=== PATIENT | female | born 1960 | race Caucasian/White ===

== ENCOUNTER → 2017-10-16 | Outpatient (CLI) | payer OTHER ==
[2015-12-02 18:27] VITALS: BP 90/50
[~2017-10-16] MED LIST: AMIT50TA PO; CONTRAST GIVEN. MC PRN; CYCL10TA2 PO; DOCU-109 PO; GABA-586 PO; IOHEXOL 180 MG/ML 10 ML VIAL. IT ONE; LIDOCAINE WITH 8.4% SOD BICARB 3 ML DISP.SYRIN. INJ ONE; LIDOCAINE WITH 8.4% SOD BICARB 3 ML DISP.SYRIN. ONE; METH750T2 PO; OXYC-411 PO; PROM25VI5 IJ; TOPI50TA8 PO; TRAZ-85 PO
--- NOTE | 2017-10-16 11:32 | RAD ---
Lumbar myelogram, 10/16/2017: History: Lumbar radiculopathy, leg pain Under local anesthesia, aseptic conditions and fluoroscopic guidance a lumbar puncture was performed at the mid L3 level utilizing a 25-gauge Jeanette spinal needle. Good clear CSF flow was obtained following which 14 cc of Omnipaque 180 was injected into the thecal sac. The spinal needle was then removed and appropriate digital images obtained. 2.3 minutes of fluoroscopy time was utilized. 14 fluoroscopic spot images were recorded. The patient tolerated the procedure well and was sent to CT in good condition. The following findings are delineated on the myelogram: 1. Bilateral pedicle screws are in place at L5 and S1 attached to longitudinally oriented posterior fixation rods. A radiopaque disc pacer is present centered within the right side of the L5-S1 disc space. 2. There is a mild anterior extradural defect at L2-3. 3. There is mild generalized widening of the anterior epidural space at L5-S1. 4. There is poor filling of the S1 nerve root sleeves bilaterally. The other lumbar nerve root sleeves are unremarkable. 5. Upright lateral flexion and extension views show no significant instability. CT of the lumbar spine-post myelogram, 10/16/2017: Multidetector CT imaging was performed with multiplanar reconstructions produced. The following findings are delineated: 1. At L1-2 there is no significant disc bulge or protrusion. The central spinal canal and neural foramina are well maintained. 2. At L2-3 there is a small to moderate size posterior disc protrusion centered just to the right of midline. This is narrowing the thecal sac predominantly on the right. At the midline the thecal sac measures 7-8 mm in AP dimension. This disc protrusion was also evident on an older study from 12/01/2015. There are mild degenerative changes involving the facet joints. The neural foramina are well maintained. 3. At L3-4 there is only mild posterior annular bulging. The central spinal canal and neural foramina are well maintained. 4. At L4-5 there is only mild broad-based posterior disc bulging. The central spinal canal is well-maintained. There are mild degenerative changes involving the facet joints with posterior ligamentous thickening resulting in mild bilateral foraminal narrowing. 5. At L5-S1 artifacts arising from the above described surgical implants degrade image quality. There is broad-based epidural soft tissue thickening along the anterior aspect of the thecal sac at this level which may reflect scarring. No high-grade spinal stenosis is evident. The thecal sac measures 8-9 mm in AP dimension. There is good opacification of the L5 nerve root sleeves. The S1 nerve root sleeves are poorly opacified and not clearly defined. IMPRESSION: 1. Previous posterior spinal fusion and instrumentation at L5-S1 with minimal generalized narrowing of the thecal sac at that level. 2. Poor opacification of the S1 nerve root sleeves bilaterally. 3. Small to moderate sized posterior disc protrusion on the right at L2-3.
== END | disposition home or self-care (01) ==
LOC: RAD 08:49
PROVIDERS: ATTEND Neurological Surgery
DX: M48.07 Spinal stenosis, lumbosacral region (principal); M51.26 Other intervertebral disc displacement, lumbar region; M48.061 Spinal stenosis, lumbar region without neurogenic claudication; G43.909 Migraine, unspecified, not intractable, without status migrainosus; Z87.442 Personal history of urinary calculi; Z90.49 Acquired absence of other specified parts of digestive tract; Z90.710 Acquired absence of both cervix and uterus; Z88.2 Allergy status to sulfonamides; Z88.8 Allergy status to other drugs, medicaments and biological substances; Z88.6 Allergy status to analgesic agent; Z82.0 Family history of epilepsy and other diseases of the nervous system; Z83.3 Family history of diabetes mellitus
CPT/HCPCS: 72132; 72265; Q9965

== ENCOUNTER → 2020-11-15 | Outpatient (CLI) | payer OTHER, MEDICARE ==
[2015-12-02 18:27] VITALS: BP 90/50
[~2020-11-15] MED LIST changes: -CONTRAST GIVEN. MC PRN; -GABA-586 PO; +GABA300C18 PO; -IOHEXOL 180 MG/ML 10 ML VIAL. IT ONE; -LIDOCAINE WITH 8.4% SOD BICARB 3 ML DISP.SYRIN. INJ ONE; -LIDOCAINE WITH 8.4% SOD BICARB 3 ML DISP.SYRIN. ONE; +METH-562 PO; -METH750T2 PO; -OXYC-411 PO; +OXYC1TAB20 PO; +TRAZ-118 PO; +TRAZ-123 PO; -TRAZ-85 PO
[2020-11-15 15:14] LABS: BASO # 0.1 x10^3/uL (0.0-0.2); BASO % 1 % (0-3); EOS # 0.1 x10^3/uL (0.0-0.7); EOS % 1 % (0-3); HEMATOCRIT 42.2 % (36.0-47.0); LYMPH # 3.5 x10^3/uL (1.0-4.8); LYMPH % 40 % (24-48); MEAN CORPUSCULAR HEMOGLOBIN 28 pg (25-35); MEAN CORPUSCULAR HGB CONC 33 g/dL (31-37); MEAN CORPUSCULAR VOLUME 83 fL (79-100); MONO # 0.5 x10^3/uL (0.0-1.1); MONO % 6 % (0-9); NEUT # 4.7 x10^3/uL (1.8-7.7); NEUT % 53 % (31-73); PLATELET COUNT 180 x10^3/uL (140-400); RED BLOOD COUNT 5.06 x10^6/uL (3.50-5.40); RED CELL DISTRIBUTION WIDTH 13.5 % (11.5-14.5); WHITE BLOOD COUNT 8.8 x10^3/uL (4.0-11.0)
[2020-11-15 15:26] LABS: ALBUMIN 3.5 g/dL (3.4-5.0); ALBUMIN/GLOBULIN RATIO 0.9 (1.0-1.7); CALCIUM 8.7 mg/dL (8.5-10.1); CREATININE 0.9 mg/dL (0.6-1.0); GFR 64.5; POTASSIUM 3.3 mmol/L (3.5-5.1); TOTAL BILIRUBIN 0.4 mg/dL (0.2-1.0); TOTAL PROTEIN 7.2 g/dL (6.4-8.2)
== END ==
LOC: SURGPAT 14:17
PROVIDERS: ATTEND Neurological Surgery
DX: Z01.812 Encounter for preprocedural laboratory examination (principal); Z20.822 Contact with and (suspected) exposure to COVID-19; M54.12 Radiculopathy, cervical region; M48.02 Spinal stenosis, cervical region
CPT/HCPCS: 80053; 85025; 87641; U0003; U0005

== ENCOUNTER 2020-11-17 10:14 | Observation (INO) | payer OTHER, MEDICARE ==
[2020-11-15 15:05] VITALS: BP 127/62
[2020-11-17] VITALS (11 sets, daily range): BP systolic 132–153; BP diastolic 56–85
[~2020-11-17] VITALS: Ht 162.6 cm; Wt 81.0 kg
[~2020-11-17 10:14] MED LIST changes: +BUPIVACAINE-EPI 0.5%-1:200000 MPF 30 ML VIAL. ONE; +CYCL10TA19 PO; -CYCL10TA2 PO; +GELATIN SPONGE SIZE 100. ONE; +THROMBIN TOPICAL 20,000 UNIT SPRAY.SYRN KIT TP ONE; +ceFAZolin SODIUM 1 GM in IV NORMAL SALINE 1000ML BAG 1,000 ML IRR ONE
[2020-11-17] MEDS: IV RINGERS,LACTATED 1000ML 1,000 ML IV SCH ×2 (11:00→21:00)
[2020-11-17] MEDS ORDERED: LIDOCAINE 2% PF 5 ML VIAL. ONE (11:05)
[2020-11-17] MEDS ORDERED: PROPOFOL 50 ML IV ONE ×2 (11:05→13:54)
[2020-11-17] MEDS ORDERED: DEXAMETHASONE SOD PHOS 20 MG/5 ML VIAL. ONE (11:05)
[2020-11-17] MEDS ORDERED: PROPOFOL 10 MG/ML (20ML) VIAL. IV ONE (11:05)
[2020-11-17] MEDS ORDERED: SUCCINYLCHOLINE 200 MG/10 ML VIAL. ONE (11:05)
[2020-11-17] MEDS ORDERED: ROCURONIUM 50 MG/5 ML VIAL. ONE (11:05)
[2020-11-17] MEDS ORDERED: fentaNYL PF VIAL 100 MCG/2 ML VIAL ONE ×2 (11:05→15:13)
[2020-11-17] MEDS ORDERED: MIDAZOLAM HCL/PF 2 MG/2 ML VIAL. ONE (11:06)
[2020-11-17] MEDS ORDERED: REMIFENTANIL 2 MG VIAL. IV ONE (11:06)
[2020-11-17] MEDS ORDERED: KETAMINE HCL IN NACL, ISO-OSM 50 MG/5 ML SYRINGE ONE (11:08)
[2020-11-17] MEDS ORDERED: PHENYLEPHRINE 10 MG/ML VIAL. ONE (11:09)
--- NOTE | 2020-11-17 11:51 | PREOP HP ---
DATE OF SERVICE: 11/17/2020 PREOPERATIVE HISTORY AND PHYSICAL HISTORY OF PRESENT ILLNESS: The patient is a 59-year-old who is having difficulty with neck and right arm pain. She says the pain can radiate down to her thumb and index finger of the right hand. The problem has been present since early August. She rates her pain 10/10 and says it is constant. She says using her right arm makes the problem worse. Sitting in her recliner can help her some. She has been taking oxycodone, Flexeril and gabapentin. She had physical therapy, which was of no benefit. CURRENT MEDICATIONS: Progesterone, Phenergan, oxycodone, trazodone, amitriptyline, topiramate, gabapentin, ibuprofen and Flexeril. PAST MEDICAL HISTORY: Headaches, kidney stones. PAST SURGICAL HISTORY: Hysterectomy, cholecystectomy, appendectomy and microdiskectomy L5-S1 right in 07/2011, microdiscectomy L5-S1 right reop in 07/2012, spinal cord stimulator placed in 12/2012, spinal cord stimulator removed in 2013, reop microdiscectomy L5-S1 right with interbody fusion and instrumentation in 11/2015, bowel resection in 2020. FAMILY HISTORY: Alzheimer disease, cancer, diabetes, heart disease, migraine headaches, hypertension. SOCIAL HISTORY: , disabled. Does not smoke currently. Does not drink alcohol. ALLERGIES: ASPIRIN, BACLOFEN, BENADRYL, STADOL, SULFA, VISTARIL, KETOROLAC. REVIEW OF SYSTEMS: A 12-point review of systems was performed and is noncontributory except that mentioned above. PHYSICAL EXAMINATION: GENERAL: Alert, pleasant, in no acute distress. HEENT: Head is normocephalic, atraumatic. NECK: Gcbt-cd-bbudsinr tenderness with palpation of posterior cervical region. SKIN: Warm and dry. MUSCULOSKELETAL: Cervical paraspinal muscle bulk is normal, cervical range of motion is restricted, normal range of motion of the upper extremities bilaterally. EXTREMITIES: No clubbing, cyanosis or edema. NEUROLOGIC: Alert and oriented x 3. Normal recent and remote memory. Strength is 5/5 in the upper extremities and lower extremities bilaterally except for 4+/5 right biceps strength. Sensory was intact to light touch in the lower and upper extremities, reflexes were absent at the biceps bilaterally and trace and symmetric in the upper and lower extremities bilaterally, normal gait. IMAGING: I reviewed a cervical MRI scan from 09/21/2020. On that study, there are mild degenerative changes throughout the cervical spine except at C5-C6 where there is bilateral uncovertebral hypertrophy, right greater than left and moderate cervical canal stenosis along with moderate right neural foraminal narrowing. ASSESSMENT AND PLAN: The problems at C5-C6 are responsible for her right cervical radiculopathy with triceps weakness. She has failed to improve with physical therapy. I recommended an anterior cervical discectomy and fusion at C5-C6. I spoke with her about the surgery including the technique, the risk and the expected postoperative course. She understands. She would like to proceed. JOSELITO/OUMAR/SARA DR: Demar TID: [id number] MTDMaria Isabel
[2020-11-17] MEDS ORDERED: CALCIUM CARBONATE 500 MG TAB.CHEW PO PRN (13:15)
[2020-11-17] MEDS ORDERED: ACETAMINOPHEN 325 MG TABLET. PO PRN (13:15)
[2020-11-17] MEDS ORDERED: MAG HYDROX/ALUMINUM HYD/SIMETH 30 ML ORAL.SUSP PO PRN (13:15)
[2020-11-17] MEDS ORDERED: ONDANSETRON PF 4 MG/2 ML VIAL. IVP PRN (13:15)
[2020-11-17] MEDS ORDERED: MAGNESIUM HYDROXIDE 2,400 MG/30 ML ORAL.SUSP. PO PRN (13:15)
[2020-11-17] MEDS ORDERED: POTASSIUM CL 20MEQ D5-0.45NACL 1,000 ML IV SCH (13:15)
[2020-11-17] MEDS ORDERED: diphenhydrAMINE HCL 25 MG CAPSULE PO PRN (13:15)
[2020-11-17] MEDS ORDERED: 0.9 % SODIUM CHLORIDE 10 ML DISP.SYRIN. IV PRN (13:15)
[2020-11-17] MEDS ORDERED: NALOXONE 0.4 MG/ML VIAL. IV PRN (13:15)
[2020-11-17] MEDS ORDERED: ePHEDrine PF IN SALINE 50 MG/10 ML SYRINGE. IV ONE (13:37)
[2020-11-17] MEDS ORDERED: ONDANSETRON PF 4 MG/2 ML VIAL. ONE (14:50)
[2020-11-17] MEDS ORDERED: DESFLURANE 61 TO 120 MINUTES IH ONE (15:02)
[2020-11-17] MEDS ORDERED: PROCHLORPERAZINE 10 MG/2 ML VIAL. ONE (15:12)
[2020-11-17] MEDS ORDERED: MORPHINE SULFATE 2 MG/ML INJ. ONE (15:13)
[2020-11-17] MEDS ORDERED: fentaNYL PF VIAL 100 MCG/2 ML VIAL IVP PRN ×2 (15:30)
[2020-11-17] MEDS ORDERED: IV RINGERS,LACTATED 1000ML 1,000 ML IV SCH (15:30)
[2020-11-17] MEDS ORDERED: HYDROmorphone 2 MG/ML VIAL IVP PRN (15:30)
[2020-11-17] MEDS: PROCHLORPERAZINE 10 MG/2 ML VIAL. IVP PRN ×2 (16:26→16:50)
[2020-11-17] MEDS: fentaNYL PF VIAL 100 MCG/2 ML VIAL IVP PRN ×3 (16:27→20:02)
--- NOTE | 2020-11-17 16:50 | OP ---
DATE OF SURGERY: 11/17/2020 PREOPERATIVE DIAGNOSES: Foraminal narrowing, right C5-C6, with right cervical radiculopathy. POSTOPERATIVE DIAGNOSES: Foraminal narrowing and focal disc herniation, right C5-C6, with right cervical radiculopathy. OPERATION PERFORMED: Anterior cervical microdiscectomy, C5-C6; anterior cervical interbody fusion, C5-C6; anterior cervical plate, C5-C6. The operation was done with multimodality monitoring including EMG, SSEP, motor evoked potentials, NIMS monitoring was employed to use fluoroscopy, microscope and microscopic dissection. SURGEON: Luis A Murphy M.D. TRADE SALES ASSISTANT: MARILEE Davalos, assisted with the surgery. She assisted with the exposure, the microdiscectomy as well as the closure. SPECIMEN: Disc and decompression. OPERATIVE INDICATIONS: The patient is a very pleasant 59-year-old who developed intractable neck and right arm pain, which failed conservative measures and imaging studies. She has above-mentioned findings and I recommended an anterior cervical microdiscectomy and fusion. I spoke with her about the surgery, the risks, technique and expected postoperative course, and she wished to go ahead. DESCRIPTION OF PROCEDURE: Following general endotracheal anesthesia, the patient was positioned supine on the operating room table. The anterior cervical region was then prepped and draped in a standard fashion. JULIANA hose and AV impulse boots were applied for DVT prophylaxis. The microscope was draped, fluoroscopy was draped and brought into the field. Monitoring was established. Ancef 2 grams was given less than one hour prior to initiation of surgery. Using fluoroscopic guidance, incision was made from the midline around toward the right side in the anterior neck. I dissected skin and subcutaneous tissue. I sharply divided the platysma, gently dissected around the medial aspect of the sternocleidomastoid and carotid artery sheath down the anterior cervical vertebral bodies. I reflected the trachea and esophagus contralaterally gently and placed anterior cervical retractors. I placed 14 mm pins in C5 and C6. I brought in the microscope during this time, the remainder of the surgery was done with a microscope using microscopic technique. I incised the anterior annulus with a #11 blade. I distracted gently and performed discectomy with pituitary rongeurs and discectomy with cartilaginous endplate. I did use the drill to help trim away some of the bone spurs that I gradually created a nice exposure, scraping the cartilaginous endplate. I drilled the posterior spurring and then I opened this with a 2 mm and 1 mm micro Kerrison, including the ligament and annulus. I worked laterally bilaterally and on the right side, there was focal disc herniation which I gently removed with the micro blunt hook as well as 1-2 mm micro Kerrisons. I explored carefully. The region was very free at this point bilaterally, I exposed carefully. The blunt hook was able to pass out laterally bilaterally without any obstruction. Hemostasis was excellent, although I did use two tiny pieces of bone wax, irrigated copiously. I placed a 6 mm interbody fusion cage, which was packed with allograft bone and then I placed a 12 mm Republic plate with four 14 mm screws. These were locked, irrigated copiously. I assured myself of excellent hemostasis and removed the retractor and obtained an x-ray that looked back again to be sure again that hemostasis was excellent. I irrigated copiously. I then closed the platysma and subcutaneous tissue with interrupted absorbable sutures. The skin was closed with 4-0 subcuticular stitch. I felt the surgery went very well. OLIVER DR: Fatimah TID: [id number] ASH
[2020-11-17] MEDS: MORPHINE SULFATE 2 MG/ML INJ. IVP PRN ×2 (16:51→17:02)
--- NOTE | 2020-11-17 17:28 | NUR ---
Arrived to unit by bed from PACU. Awakens easily. Dressing on anterior neck is d/i and placed soft collar. Pt able to move all extremities but still has some discomfort on right shoulder and arm. States pain is better prior to surgery. Radial pulses + bilaterally. IVF's intact and infusing. O2 at 2l per n/c. JULIANA's and SCD's on bilaterally. Side rails up x's 2 with call light in reach. Spouse at bedside. Taking ice chips without difficulty. Cont. monitor.
[2020-11-17] MEDS: CYCLOBENZAPRINE 10 MG TABLET. PO PRN (19:53)
[2020-11-17] MEDS: GABAPENTIN 300 MG CAPSULE. PO SCH (19:53)
[2020-11-17] MEDS: DOCUSATE SODIUM 100 MG CAPSULE. PO SCH (19:53)
[2020-11-17] MEDS: ceFAZolin SODIUM IV Push 1 GM VIAL. IVP SCH (20:00)
[2020-11-17] MEDS ORDERED: traZODone 100 MG TABLET. PO SCH (21:00)
[2020-11-17] MEDS ORDERED: AMITRIPTYLINE HCL 25 MG TABLET. PO SCH (21:00)
[2020-11-17] MEDS: oxyCODONE/APAP 10/325 1 TAB TABLET PO PRN (21:52)
[2020-11-18 03:00] VITALS: BP 147/86
[2020-11-18] MEDS: fentaNYL PF VIAL 100 MCG/2 ML VIAL IVP PRN ×3 (03:18→12:52)
[2020-11-18] MEDS: ceFAZolin SODIUM IV Push 1 GM VIAL. IVP SCH ×2 (03:21→12:05)
--- NOTE | 2020-11-18 03:36 | NUR ---
C/o pad on sole of right foot "feels weird/tight". No redness or swelling noted. Fentanyl given for c/o neck pain. States she "is irritated that snored all night." Iv site changed earlier due to infiltration. 20g in right hand started by MEAGAN Santana.
[2020-11-18] MEDS: oxyCODONE/APAP 10/325 1 TAB TABLET PO PRN ×2 (06:17→12:19)
[2020-11-18 07:00] VITALS: BP 139/81
[2020-11-18] MEDS: CYCLOBENZAPRINE 10 MG TABLET. PO PRN (09:00)
[2020-11-18] MEDS: DOCUSATE SODIUM 100 MG CAPSULE. PO SCH (09:00)
[2020-11-18] MEDS: GABAPENTIN 300 MG CAPSULE. PO SCH (09:00)
--- NOTE | 2020-11-18 09:00 | NUR ---
up and about in room. wanting to go home today. reviewed orally plan of care and plan for pain medication for the ride home. and milena agree with the plan. denies numbness in her right thumb and pointer finger.
[2020-11-18 10:57] VITALS: BP 132/75
[2020-11-18] MEDS ORDERED: DOCU-109 PO (11:55)
--- NOTE | 2020-11-18 11:57 | DISCH ---
DISCHARGE INSTRUCTIONS Condition on Discharge Condition on Discharge: Stable Activity After Discharge Activity Instructions for Disc: Activity as tolerated, Avoid exertion, Walk in house Other activity instructions: no lifting greater than 10 pounds (5 pounds each arm) Bathing Instructions: Shower-keep dressing dry, No Tub Bath until see Lifting Instructions after Dis: No heavy lifting, No pulling or pushing, Do not lift >10 pounds Exercise Instruction after Dis: Progress as tolerated Driving Instructions after Dis: No driving for 2 weeks Weight Bearing Status after Di: No restrictions, Full weight bearing, As tolerated Diet after Discharge Diet after Discharge: Regular Additional Diet Restrictions: resume home diet, soft foods as needed Diet Texture: Regular Liquid Texture: Thin Liquid Swallowing Supervision: None needed Wound Incision Care Wound/Incision Care: Ice to area for comfort, Keep wound/cast CDI Other wound/incision instructi: lesay shower 48 hrs after surgery; may remove dressing afte shower Wound Care Equipment: Dressings Checks after Discharge DC Comment: increase fruits, vegetables and fiber attempt BM every 2-3 days Contacting the DRThuy after DC Call your doctor for: Concerns you may have Follow-Up Follow Up With: call [phone] for a 2 week post op appt with Dr. Haskins/Rae Treatment/Equipment after DC Adaptive Equipment Issued: None Comment: wear soft collar the 1st week 2nd week wear in car JANESSA HASKINS MD Nov 18, 2020 11:56
--- NOTE | 2020-11-18 12:30 | NUR ---
reviewed written instructions for discharge. verbalized understanding of these instructions reviewed follow up, care of incision, medications and restrictions to activities of daily living such as bathing. will be departing after lunch.
--- NOTE | 2020-11-18 18:51 | DS ---
DATE OF DISCHARGE: 11/17/2020 DISCHARGE DIAGNOSIS: Foraminal narrowing right C5-C6 with right cervical radiculopathy. OPERATION PERFORMED: ACDF at C5-C6. OPERATIVE INDICATIONS: The patient is a pleasant 59-year-old who developed intractable neck and right arm pain, which failed to improve with conservative measures including physical therapy. She had the above-mentioned findings and I recommended an anterior cervical microdiskectomy and fusion at C5-C6. I spoke with her about the surgery and the risks, the technique and the expected postoperative course. She understood and wished to go ahead. HOSPITAL COURSE: She was admitted to the floor postoperatively. She has done well. She notes improvement and resolution of the numbness and pain in her right arm and index finger and thumb. Her pain is well controlled with her pain medication. She is in good condition to discharge home. DISCHARGE MEDICATIONS: She will resume her medications per the [facility]. DISCHARGE INSTRUCTIONS: She was instructed regarding incision care, activity restrictions and expectations for the next several weeks. She is doing very well. Her voice is clear. She understands to call us with any questions or concerns. She will follow up with us in [address]: Demar TID: [id number] ASH
== END 2020-11-18 13:05 | disposition home or self-care (01) ==
LOC: SURG 10:14 → 4 NORTH 13:18
PROVIDERS: ADMIT Neurological Surgery; ATTEND Neurological Surgery
DX: M50.122 Cervical disc disorder at C5-C6 level with radiculopathy (principal); Z20.822 Contact with and (suspected) exposure to COVID-19; Z82.0 Family history of epilepsy and other diseases of the nervous system; Z82.49 Family history of ischemic heart disease and other diseases of the circulatory system; Z83.3 Family history of diabetes mellitus; Z87.442 Personal history of urinary calculi; Z90.49 Acquired absence of other specified parts of digestive tract; Z90.710 Acquired absence of both cervix and uterus; Z98.890 Other specified postprocedural states
CPT/HCPCS: 20930; 22551; 22853; 87086; 88304; 96374; 96375; 96376; 97116; 97162; 97530; A4213; A4364; A4930; A6254; A6258; C1713; C1821; G0378; J0330; J0690; J0780; J1100; J2250; J2270; J2370; J2405; J2704; J3010; J7030; 76000; A4222; G0379